=== PATIENT | male | born 1935 | race Caucasian/White ===

== ENCOUNTER 2017-12-10 20:50 | Emergency (ER) | payer MEDICAID, MEDICARE ==
[2017-12-10] MEDS ORDERED: Hydrocodone/APAP 5mg/325mg Tab PO ONE (22:35)
[2017-12-10] MEDS ORDERED: Hydrocodone/APAP 5mg/325mg Tab ONE (22:56)
[2017-12-10 22:59] LABS: % BASOPHILS 0.4 % (0.0-2.0); % EOSINOPHILS 1.9 % (0.0-5.0); % LYMPHOCYTES 13.3 % (20.0-50.0); % MONOCYTES 5.4 % (2.0-10.0); EOSINOPHILE ABSOLUTE 0.2 Th/cmm (0.1-0.4); LYMPHOCYTE ABSOLUTE 1.4 Th/cmm (1.5-3.0); MEAN CELL VOLUME 82.9 fl (80-99); MEAN CORPUSCULAR HGB CONC 32.5 pg (28.0-36.0); MEAN PLATELET VOLUME 6.8 fl; MONOCYTE ABSOLUTE 0.6 Th/cmm (0.3-1.0); NEUTROPHILE ABSOLUTE 8.2 Th/cmm (1.8-8.0); RED BLOOD COUNT 4.76 Mil/cmm (3.80-5.80); RED CELL DISTRIBUTION WIDTH 14.6 % (11.5-20.0); WHITE BLOOD COUNT 10.4 Th/cmm (4.8-10.8)
[2017-12-10 23:05] LABS: HEMATOCRIT 39.4 % (41.0-60); HEMOGLOBIN 12.8 gm/dL (12-16); PLATELET COUNT 239 Th/cmm (150-400)
[2017-12-10 23:11] LABS: ALBUMIN 3.7 gm/dL (4.2-5.5); ALKALINE PHOSPHATASE 89 U/L (34-104); ANION GAP 10.7 (7.0-16.0); BILIRUBIN,TOTAL 0.8 mg/dL (0.3-1.0); BUN - UREA NITROGEN 22 mg/dL (7-25); CARBON DIOXIDE 28.2 mEq/L (21.0-31.0); CHLORIDE 105 mEq/L (98-107); CREATININE - SERUM 0.8 mg/dL (0.7-1.3); GLUCOSE 142 mg/dL (70-105); POTASSIUM SERUM 3.9 mEq/L (3.5-5.1); SGOT 24 U/L (13-39); SGPT/ALT 19 U/L (7-52); SODIUM SERUM 140 mEq/L (136-145); TOTAL PROTEIN,SERUM 7.6 gm/dL (6.0-8.3)
[2017-12-10 23:13] LABS: INR 1.07 (0.5-1.4); PROTHROMBIN TIME (TEST) 11.1 SECONDS (9.5-11.5)
--- NOTE | 2017-12-11 00:47 | Transfer Summary ---
DATE OF TRANSFER: CODE: Full code. HISTORY OF PRESENT ILLNESS: This is an 82-year-old male patient who fell down 3 days ago. He had his both lower extremities crossed and he fell down while he got up and he lives by himself and he was helped by some relatives and the patient has 4 sons, and helped him out. He still has pain in the right hip joint. He came on the wheelchair. He was seen. History of present illness is essentially same. The patient can move his left leg but the right leg, the patient has a lot of pain. He has pain in the right leg around the pelvic area, around the hip joint area. The other bones and structures in the upper extremities, neck, chest, everything was found to be normal. REVIEW OF SYSTEMS: Essentially benign and negative. GENERAL AND CONSTITUTIONAL: Negative. No fever, chills, or rigors. BONES AND JOINTS: Pain in the right hip joint area, right pelvic area. ENT: No deafness. No ear discharge. EYES: No double vision, blurring, or blindness. CENTRAL NERVOUS SYSTEMS: No history of TIA, stroke, encephalitis, meningitis. PULMONARY: No history of pneumonia, TB, pulmonary embolism, COPD, emphysema, bronchitis. CARDIAC: No history of any chest pain. No history of myocardial infarction, rheumatic fever, valvular heart disease, pericardial disease. GASTROINTESTINAL: No history of diarrhea, constipation, vomiting. ENDOCRINE: No complaint of diabetes or hypo or hyperthyroidism. GENITOURINARY: No burning, frequency, dysuria. At one point in life when he was 27-year-old, he had urinary tract retention and he need a [place] catheter. I am not sure why he had that complain at that young age, but that was per history given to me. Otherwise, he has no surgical history. PHYSICAL EXAMINATION: GENERAL: The patient appears to be awake, alert, oriented. Conjunctivae pink. Sclerae white. HEENT: Normal. General exam is benign and negative. CHEST: Clear. Trachea being central, fairly good air entry in both lungs without any rales, rhonchi, or bronchial wheezing. ABDOMEN: Soft, benign, negative. Liver and spleen not enlarged. No free fluid in the abdominal cavity. CENTRAL NERVOUS SYSTEM: Grossly within normal limits. Examination of the joint in the right hip, he has pain, tenderness, and he could not stand on that leg, so we got the x-rays of the hip joint and x-ray of the right pelvis, did not find any fracture. There might be some soft tissue injury and sprain secondary to fall. That would be my clinical diagnosis. As the femur head, neck, the long bones and joints at the hip ____. Knee joint also appears to be within normal limits. The patient does not have anything positive findings seen. Lab workup was done showing white count of 10.4, hemoglobin 12.8, and hematocrit of 39.4. The lab was done to see if the patient would need surgery, then the patient would need to see if there anything bleeding in the joint, then the level of hemoglobin and hematocrit drops. So that is why the labs were done and the labs did not show anything abnormal. Neutrophils is 79, lymphocytes 13.3. PTT is 24.5 and PT/INR is 1.07. Sodium 140, potassium 3.9, chloride 105, carbon dioxide is 28.2, BUN is 22, creatinine 0.9, glucose is 142, calcium 1.9, total bilirubin 0.8. AST, ALT, alkaline phosphatase all within normal limits. Albumin is ____ low at 3.7, nothing much, a few days of good nourishment will help him out. In conclusion, the patient had a history of fall, injury to the right knee, but fortunately yun for him. No fracture is detected. The patient has sprains. So, the patient will be sent home on some muscle relaxant, Robaxin 500 mg 3 times a day and we can give him some Motrin 400 mg 2-3 times a day and occasional [place], maybe a couple of times a day for about 8-10 days. After that, the patient will be only on Tylenol and [place] only. JOB# [id number]
--- NOTE | 2017-12-11 08:23 | Diagnostic Imaging Report ---
Exam: Portable chest x-ray. HISTORY: Pneumonia. Findings: Portable exam of chest at 2325 hours reviewed and compared to prior study 01/17/2016. The study demonstrates bilateral basilar interstitial infiltrates with superimposed pleural thickening and small effusions bilaterally. Mediastinal structures midline the heart is not enlarged. The aortic arch calcified. Bony thorax is intact. COPD changes are noted. IMPRESSION: Basilar infiltrates, superimposed small effusion versus pleural thickening bilaterally. Follow-up examination recommended.
--- NOTE | 2017-12-11 08:31 | Diagnostic Imaging Report ---
Fracture Findings: Multiple views of the right hip joint portably at 2323 hours reviewed. The study demonstrates no evidence of fracture dislocation. Degenerative narrowing of the right hip joint space appreciated. IMPRESSION: Essentially unremarkable examination right hip joint, mild degenerative changes.
--- NOTE | 2017-12-11 08:31 | Diagnostic Imaging Report ---
Exam: Right femur. HISTORY: Fracture. Findings: Multiple views of the right femur reviewed. The study demonstrates no evidence for acute fracture dislocation. No soft tissue swelling is noted. IMPRESSION: Essentially unremarkable examination right femur, mild degenerative narrowing of the right hip joint space.
== END 2017-12-11 00:05 | disposition home or self-care (01) ==
LOC: ER 20:50
DX: S83.91XA Sprain of unspecified site of right knee, initial encounter (principal); Z79.01 Long term (current) use of anticoagulants; W19.XXXA Unspecified fall, initial encounter; Y93.89 Activity, other specified; Y92.89 Other specified places as the place of occurrence of the external cause; Y99.8 Other external cause status
CPT/HCPCS: 36415-UA; 71045-TC; 73501; 80053-TC; 85025-TC; 85610-TC